=== PATIENT | female | born 1960 | race Caucasian/White ===

== ENCOUNTER → 2017-03-14 | Outpatient (CLI) | payer OTHER | LOC: CIMAGING 09:39 | DX: Z12.31 Encounter for screening mammogram for malignant neoplasm of breast (principal); Z80.3 Family history of malignant neoplasm of breast | CPT/HCPCS: G0202 ==

== ENCOUNTER → 2018-06-11 | Outpatient (CLI) | payer BC, OTHER | LOC: CIMAGING 14:38 | PROVIDERS: ATTEND Family Medicine | DX: Z12.31 Encounter for screening mammogram for malignant neoplasm of breast (principal) ==

== ENCOUNTER 2018-09-13 08:51 | Inpatient (IN) | payer SELFPAY ==
--- NOTE | 2018-09-13 07:21 | PDHPUP ---
History & Physical Update H&P update statement: This history and physical update is based on an assessment of the patient which was completed after admission or registration (within 24 hours), but prior to the surgery/procedure. H&P update: H&P reviewed & patient examined, no change in patient's condition since H&P completed
[~2018-09-13 08:51] MED LIST: ROPIVACAINE 0.2% 80 MG, EPINEPHrine 0.2 MG, KETOROLAC TROMETHAMINE 30 MG in SYRINGE 0 ML IU ONE; TRANEXAMIC ACID 3,000 MG in NS (SYRINGE) 50 ML IRR ONE; TRANEXAMIC ACID 3,000 MG/50 ML BAG IRR ONE
[2018-09-13] MEDS ORDERED: ceFAZolin 2 GM/DEXTROSE 100 ML IV ONE (09:22)
[2018-09-13] MEDS ORDERED: DEXAMETHASONE 4 MG/ML VIAL IVP ONE (09:22)
[2018-09-13] MEDS ORDERED: ACETAMINOPHEN 325 MG TAB PO ONE (09:22)
[2018-09-13] MEDS ORDERED: FAMOTIDINE 20 MG TAB PO ONE (09:22)
[2018-09-13] MEDS ORDERED: LR 1,000 ML IV ONE (09:23)
[2018-09-13] MEDS ORDERED: LIDOCAINE 1% 2 ML INJ ID PRN (09:23)
[2018-09-13] MEDS ORDERED: PHENYLEPHRINE HCL 100 MCG/ML SYR IVP PRN (09:38)
[2018-09-13] MEDS ORDERED: PROMETHAZINE HCL 25 MG/ML INJ IVP PRN ×2 (09:38→12:36)
[2018-09-13] MEDS ORDERED: oxyCODONE IR 5 MG TAB PO PRN (09:38)
[2018-09-13] MEDS ORDERED: MIDAZOLAM 2 MG/2 ML VIAL IVP ONE (09:38)
[2018-09-13] MEDS ORDERED: LR 500 ML IV PRN (09:38)
[2018-09-13] MEDS ORDERED: NALOXONE HCL 0.4 MG/ML INJ IVP PRN (09:38)
[2018-09-13] MEDS ORDERED: ONDANSETRON 4 MG/2 ML VIAL IVP PRN ×2 (09:38→12:36)
[2018-09-13] MEDS ORDERED: LIDOCAINE 2% 5 ML SDV ONE (09:41)
[2018-09-13] MEDS ORDERED: PROPOFOL/EMULSION 500 MG/50 ML BOTTLE IV ONE ×2 (09:41→11:44)
[2018-09-13] MEDS ORDERED: ONDANSETRON 4 MG/2 ML VIAL ONE (09:41)
[2018-09-13] MEDS ORDERED: PROPOFOL 200 MG/20 ML VIAL ONE (09:41)
--- NOTE | 2018-09-13 10:45 | PDANEPAE ---
ANE Past Medical History - Cardiovascular History Hx Hypertension: Yes Hx Arrhythmias: No Hx Chest Pain: No Hx Coronary Artery / Peripheral Vascular Disease: No Hx CHF / Valvular Disease: No Hx Palpitations: No Cardiovascular History Comment: dialtion of aorta. right BBB. worked up by [facility] - Pulmonary History Hx COPD: No Hx Asthma/Reactive Airway Disease: No Hx Recent Upper Respiratory Infection: No Hx Oxygen in Use at Home: No Hx Sleep Apnea: No Sleep Apnea Screening Result - Last Documented: Negative - Neurologic History Hx Cerebrovascular Accident: No Hx Seizures: No Hx Dementia: No - Endocrine History Hx Diabetes: No - Renal History Hx Renal Disorders: No - Liver History Hx Hepatic Disorders: No - Neurological & Psychiatric Hx Hx Neurological and Psychiatric Disorders: No - Cancer History Hx Cancer: No - Congenital Disorder History Hx Congenital Disorders: No - GI History Hx Gastrointestinal Disorders: No - Other Health History Other Health History: glasses - Chronic Pain History Chronic Pain: Yes (left hip) - Surgical History Prior Surgeries: inguinal hernia repair x2. breast implants ANE Review of Systems Review of Systems: - Exercise capacity METS (RN): 4 METS ANE Patient History - Allergies Allergies/Adverse Reactions: morphine Allergy (Verified 09/12/18 10:10) Vomiting - Home Medications Home Medications: Losartan Potassium [Cozaar 50 mg (*)] 50 mg PO DAILY 09/05/18 [Last Taken ] Metoprolol Succinate 50 mg PO DAILY 09/05/18 [Last Taken 09/13/18 07:30] - NPO status NPO Since - Liquids (Date): 09/13/18 NPO Since - Liquids (Time): 08:00 NPO Since - Solids (Date): 09/12/18 NPO Since - Solids (Time): 20:00 - Smoking Hx Smoking Status: Former smoker - Family Anes Hx Family Hx Anesthesia Complications: none ANE Labs/Vital Signs - Vital Signs Blood Pressure: 130/81 Heart Rate: 57 Respiratory Rate: 19 O2 Sat (%): 96 Height: 162.56 cm Weight: 67.585 kg ANE Physical Exam - Airway Neck exam: FROM Mallampati Score: Class 2 Mouth exam: normal dental/mouth exam - Pulmonary Pulmonary: no respiratory distress, no rales or rhonchi, clear to auscultation - Cardiovascular Cardiovascular: regular rate and rhythym, no murmur, rub, or gallop - ASA Status ASA Status: II ANE Anesthesia Plan Anesthesia Plan: spinal
[2018-09-13] MEDS ORDERED: BUPIVACAINE/DEXTROSE 7.5MG/ML 2 ML SPINAL AMP SP ONE (10:48)
[2018-09-13] MEDS ORDERED: ePHEDrine SULFATE 25 MG/5 ML SYR ONE (11:32)
[2018-09-13] MEDS ORDERED: BISACODYL 10 MG SUPP PR PRN (12:36)
[2018-09-13] MEDS ORDERED: METOCLOPRAMIDE 10 MG/2 ML VIAL IVP PRN (12:36)
[2018-09-13] MEDS ORDERED: TEMAZEPAM 15 MG CAP PO PRN (12:36)
[2018-09-13] MEDS ORDERED: POLYETHYLENE GLYCOL 3350 17 GM PKT PO PRN (12:36)
[2018-09-13] MEDS ORDERED: diphenhydrAMINE 25 MG CAP PO PRN (12:36)
[2018-09-13] MEDS ORDERED: PROMETHAZINE HCL 25 MG SUPPR PR PRN (12:36)
[2018-09-13] MEDS ORDERED: DIPHENOXYLATE/ATROPINE LOMOTIL 1 TAB PO PRN (12:36)
[2018-09-13] MEDS ORDERED: MAGNESIUM HYDROXIDE 30 ML UDCUP PO PRN (12:36)
[2018-09-13] MEDS ORDERED: LACTULOSE 20 GM/30 ML UDCUP PO PRN (12:36)
--- NOTE | 2018-09-13 12:36 | POSTOPPROG ---
Post Op Note Date of Operation: 09/13/18 Surgeon: Tejinder Jung Mushroom Cutter: Ally Jung PA-C Anesthesiologist: Dr. Garcia Anesthesia: Spinal, Other (Specify) (adductor canal block) Pre-op Diagnosis: left hip OA Post-op Diagnosis: same Indication: left hip pain Procedure: left ZANE Findings: severe left hip OA Inf/Abcess present in the surg proc area at time of surgery?: No EBL: 50-100
--- NOTE | 2018-09-13 12:44 | PDMN ---
Medical Necessity [place] [facility] [place] OP: L ZANE
[2018-09-13] MEDS ORDERED: LR 1,000 ML IV SCH (13:00)
[2018-09-13] MEDS ORDERED: fentaNYL 100 MCG/2 ML INJ ONE ×2 (13:11→14:17)
[2018-09-13] MEDS: fentaNYL 100 MCG/2 ML INJ IVP PRN ×4 (13:13→14:42)
[2018-09-13] MEDS ORDERED: HYDROmorphONE/DILAUDID 2 MG/ML INJ ONE (13:29)
[2018-09-13] MEDS ORDERED: oxyCODONE IR 5 MG TAB ONE (13:30)
[2018-09-13] MEDS: HYDROmorphONE/DILAUDID 2 MG/ML INJ IVP PRN ×5 (13:32→14:42)
[2018-09-13] MEDS: GENTAMICIN 0.3% 3.5 GM OPHT.OINT LEFTEYE SCH ×2 (13:44→22:41)
[2018-09-13] MEDS: oxyCODONE IR 5 MG TAB PO PRN ×2 (15:39→18:30)
[2018-09-13] MEDS: ceFAZolin 2 GM/DEXTROSE 100 ML IV SCH ×2 (15:39→22:42)
[2018-09-13] MEDS: CYCLOBENZAPRINE 10 MG TAB PO PRN (15:40)
--- NOTE | 2018-09-13 16:40 | POSTANESTH ---
Post Anesthetic Evaluation Cardiovascular Status: Normal, Stable Respiratory Status: Normal, Stable Level of Consciousness/Mental Status: Can Participate in Eval Pain Control: Adequate, Prn Tx Ordered Nausea/Vomiting Control: Adequate, Prn Tx Ordered Complications Possibly Related to Anesthesia: None Noted
[2018-09-13] MEDS: ONDANSETRON DISINTEGRATING 4 MG TAB PO PRN (17:31)
[2018-09-13] MEDS: ACETAMINOPHEN 325 MG TAB PO SCH (18:25)
[2018-09-13] MEDS: ASPIRIN 81 MG CHEWABLE TAB PO SCH (20:45)
[2018-09-13] MEDS: SENNOSIDES/DOCUSATE SODIUM TAB PO SCH (20:45)
[2018-09-13] MEDS: FAMOTIDINE 20 MG TAB PO SCH (20:45)
[2018-09-13] MEDS ORDERED: HYDROmorphONE/DILAUDID 2 MG/ML INJ IVP PRN (21:42)
[2018-09-14] MEDS: ACETAMINOPHEN 325 MG TAB PO SCH ×4 (01:34→16:33)
[2018-09-14] MEDS: oxyCODONE IR 5 MG TAB PO PRN ×2 (05:27→14:32)
[2018-09-14] MEDS: CYCLOBENZAPRINE 10 MG TAB PO PRN ×2 (05:28→16:33)
--- NOTE | 2018-09-14 05:52 | GOP ---
DATE OF OPERATION: 09/13/2018 SURGEON: Mart Jung MD DIRECTOR PROJECT MANAGEMENT: Ally Jung, MEI. ANESTHESIA: Spinal. PREOPERATIVE DIAGNOSIS: Left hip osteoarthritis. POSTOPERATIVE DIAGNOSIS: Left hip osteoarthritis. PROCEDURE PERFORMED: Total hip arthroplasty with x-ray. FINDINGS: ESTIMATED BLOOD LOSS: 200 cc. INDICATIONS: The patient has progressively worsening arthritis of the hip which has failed medical m anagement. The patient understands the treatment options including continued non-operative care and has selected surgical intervention. The patient has decided to undergo total hip arthroplasty via th e direct anterior approach, understanding the risks of the procedure including, but not limited to, n eurovascular injury, infection, persistent pain, component wear and loosening, deep venous thrombosis , pulmonary embolism, limb length inequality, hip instability (including dislocation), and intra-oper ative fractures. DESCRIPTION OF PROCEDURE: After proper identification of the patient including verification and ivania ing the surgical site, the patient was brought to the operating room and placed in the supine positio n. All bony prominences were well padded. Anesthesia was induced without complication and intraveno us prophylactic antibiotics were administered prior to skin incision. The operative leg was placed in the Trumpf Arch table extension and the well leg in a Yellofin leg ho lder. The patient was prepped and draped in the usual sterile fashion. The C-arm was draped for int ra-operative fluoroscopy to check acetabular position, femoral component position including leg lengt h and femoral offset. Attention was then drawn to surgical exposure of the hip. An incision was made with a #10 Bard Kaufman r blade starting 3 cm lateral and 3 cm distal to the anterior superior iliac spine measuring 8-10 cm and coursing distally toward the greater trochanter. The skin and subcutaneous tissues were divided sharply down to the fascia maria l. The fascia maria l was incised in line with the skin incision exposing the underlying tensor fascia maria l muscle. The muscle was bluntly elevated from the fascia and the f irst extracapsular Cobra retractor was placed laterally at the junction of the superior femoral neck and greater trochanter. The lateral femoral circumflex vessels were identified, cauterized, and divi ded with the Aquamantys bipolar cautery. The deep investing fascia of the TFL was divided to allow p shane mobilization of the muscle preventing damage during the retraction. The reflected head of the rectus femoris muscle was elevated off the anterior hip capsule and a medial Cobra retractor was plac ed just proximal to the lesser trochanter. The anterior capsulotomy was made sharply from the superolateral acetabulum to the saddle junction of the superior femoral neck and greater trochanter, then coursing inferomedial towards the lesser troc hanter. The retractors were then placed in the intracapsular position for femoral neck osteotomy. C orresponding to pre-operative templating, the osteotomy was made with the oscillating saw carefully p rotecting the greater trochanter and soft tissues. The femoral head was removed from the acetabulum with a corkscrew and confirmed to be severely arthritic with exposed bone, deformity and osteophytes. Similar findings were confirmed in the acetabulum. The Arch table extension was then placed in 40 degrees external rotation. Attention was then drawn to the acetabular preparation. After placement of the anterior and posterio r Cobra retractors outside the labrum and intracapsular, the circumferential labrum was removed sharp ly. The foveal contents were then removed and hemostasis obtained with cautery. The first reamer selected was sized using the removed femoral head. Reaming began with medialization and then commenced in 2 mm increments at 45 degrees of abduction and 15 degrees of anteversion using fluoroscopic navigation. Reaming ceased 1 mm less than the definitive acetabular component and latonya esponded to the pre-operative templating. The final acetabular component was inserted using fluorosc opy to achieve proper orientation yielding excellent purchase and stability in the acetabulum. The f inal acetabular liner was then placed and its seating confirmed. Attention was then turned to the femur. The Arch table extension was placed in extension and adducti on, delivering the osteotomized femoral neck into the wound. A 2-pronged femoral elevator was placed at the calcar and another at the tip of the greater trochanter. The posterolateral capsule was rele ased with cautery allowing mobilization of the femur lateral and anterior for preparation. The exter nal rotators were visualized and preserved. A curette and rongeur were used to open the starting poi nt for broaching. Serial broaching started with the #0 broach and ended with the broach that exhibit ed excellent fit in the proximal femur. A change in pitch during mallet strikes was accompanied by t he inability to advance the broach any further. The trial reduction was performed and fluoroscopic n avigation was utilized to check limb length. Adjustments were made to equalize limb length according ly. After the final trials were accepted they were removed and the wound was copiously lavaged. The femo ral component was seated to the same depth as the final broach and the femoral head was impacted onto the clean trunnion. The hip was then reduced for the final time and once more fluoroscopy was used to check that limb length equality was achieved. The wound was irrigated and closed in layers, the fascia maria l with 2-0 Quill, the subcutaneous tissue with 2-0 Quill, and the skin with Dermabond. Sterile dressings were applied. Final sharps and spon ge counts were accurate. The patient was then transferred to a hospital bed and brought to the [facility] room in stable condition. IMPLANTS: Accolade II size 3 and 127 acetabular component, a Trident II 54 mm, liner is a Trident X3 36 mm, head is a Biolox Delta 36 mm +5. /[id number]/MODL
[2018-09-14] MEDS: FAMOTIDINE 20 MG TAB PO SCH ×2 (08:12→21:02)
[2018-09-14] MEDS: SENNOSIDES/DOCUSATE SODIUM TAB PO SCH ×2 (08:12→21:00)
[2018-09-14] MEDS: ASPIRIN 81 MG CHEWABLE TAB PO SCH ×2 (08:12→21:02)
[2018-09-14] MEDS: GENTAMICIN 0.3% 3.5 GM OPHT.OINT LEFTEYE SCH ×2 (08:20→16:44)
[2018-09-14] MEDS: METOPROLOL SUCCINATE XR 50 MG TAB PO SCH (08:41)
[2018-09-14] MEDS: LOSARTAN POTASSIUM 50 MG TAB PO SCH (08:41)
[2018-09-14] MEDS ORDERED: NS 500 ML IV ONE (10:00)
--- NOTE | 2018-09-14 10:58 | SOAPPROG ---
SOAP Progress Note Assessment/Plan: Assessment: Patient is doing well POD 1 s/p L ZANE Pain management: patient had pain issues yesterday, and the information systems professor PA for [employer], Rickey Infante, ordered 2mg IV dilaudid Q3-4 H PRN. Patient received one dose of this IV dilaudid at 2mg and nurse noted decreased O2 sats in the 80s. Monitored patient closely and told patient she did not feel comfortable continuing IV dilaudid. Nurse did a great job recognizing that this was unsafe for the patient. Patient is currently taking oral oxycodone IR. recommend patient remain inpatient for pain management and close monitoring of vitals. patient's BP has remained borderline hypotensive. VTE ppx: recommend aspirin 81 mg BID for 4 weeks, cont LISA and SCDs Anemia: level is expected initially postop. Asymptomatic. Continue to monitor D/c planning: recommend another night in the hospital for close monitoring of BP ,and pain management. continue PT while inpatient at the hospital. Hypotension: encourage monitoring closely, if BP do not improve today, recommend holding losartan and beta mario. postop urinary retention: straight cath'd yesterday, resolved today. continue to monitor closely. Plan: 09/14/18 10:54 09/14/18 10:59 09/14/18 11:01 Subjective: Patient is doing ok this morning, received large dose of IV dilaudid last night and had subsequent drop in O2 sat's and decrease in BPs per nurses note. Nurse stopped further doses of IV dilaudid. patient has had pain issues, denies SOB, chest pain and N/V Objective: Vital Signs Temp Pulse Resp BP Pulse Ox 36.7 C 65 12 94/59 L 97 09/14/18 07:49 09/14/18 08:41 09/14/18 07:49 09/14/18 09:56 09/14/18 07:49 Laboratory Results 09/14/18 05:15 09/13/18 09/14/18 09/15/18 05:59 05:59 05:59 Intake Total 1795 350 Output Total 1200 400 Balance 595 -50 LLE: incision dressing is clean and dry, NVI, +pf/df ICD10 Worksheet Patient Problems: Problems Problem Status Onset Primary localized osteoarthritis of left hip Acute
[2018-09-14] MEDS ORDERED: NS BOLUS 500 ML (Wide open) IV ONE (17:00)
[2018-09-15] MEDS: GENTAMICIN 0.3% 3.5 GM OPHT.OINT LEFTEYE SCH ×2 (00:04→08:37)
[2018-09-15] MEDS: ACETAMINOPHEN 325 MG TAB PO SCH ×2 (00:19→05:19)
[2018-09-15] MEDS: ONDANSETRON DISINTEGRATING 4 MG TAB PO PRN (06:38)
[2018-09-15] MEDS: oxyCODONE IR 5 MG TAB PO PRN (06:38)
[2018-09-15 07:56] VITALS: BP 102/64
[2018-09-15] MEDS: ASPIRIN 81 MG CHEWABLE TAB PO SCH (07:56)
[2018-09-15] MEDS: SENNOSIDES/DOCUSATE SODIUM TAB PO SCH (07:57)
[2018-09-15] MEDS: FAMOTIDINE 20 MG TAB PO SCH (07:57)
[2018-09-15] MEDS: LOSARTAN POTASSIUM 50 MG TAB PO SCH (08:37)
[2018-09-15] MEDS: METOPROLOL SUCCINATE XR 50 MG TAB PO SCH (08:37)
--- NOTE | 2018-09-15 10:21 | SOAPPROG ---
SOAP Progress Note Assessment/Plan: Assessment: Patient is doing well POD 2 s/p L ZANE Pain management: pain has improved. controlled on oral pain meds VTE ppx: recommend aspirin 81 mg BID for 4 weeks, cont LISA and SCDs Anemia: level is expected initially postop. Asymptomatic. Continue to monitor Hypotension: improved postop urinary retention: straight cath'd POD 0, resolved POD 1. D/c planning: ok to discharge to home today Plan: 09/14/18 10:54 09/14/18 10:59 09/14/18 11:01 09/15/18 10:19 Subjective: patient is doing well, pain control has improved and patient is awake and alert. Objective: Vital Signs Temp Pulse Resp BP Pulse Ox 37.2 C 71 16 102/64 95 09/15/18 07:55 09/15/18 08:37 09/15/18 07:55 09/15/18 08:37 09/15/18 07:55 Laboratory Results 09/15/18 04:30 09/14/18 09/15/18 09/16/18 05:59 05:59 05:59 Intake Total 1795 1350 Output Total 1200 2050 Balance 595 -700 LLE: incision dressing is clean and dry, NVI, +pf/df ICD10 Worksheet Patient Problems: Problems Problem Status Onset Primary localized osteoarthritis of left hip Acute
== END 2018-09-15 11:17 | disposition home or self-care (01) | DRG 470 ==
LOC: F3N 08:51
PROVIDERS: ADMIT Orthopaedic Surgery; ATTEND Orthopaedic Surgery
PROC: 0SRB04Z Replacement of Left Hip Joint with Ceramic on Polyethylene Synthetic Substitute, Open Approach (ICD-10-PCS; principal; 2018-09-13 11:00)
DX: M16.12 Unilateral primary osteoarthritis, left hip (principal); I95.9 Hypotension, unspecified; D64.9 Anemia, unspecified; R33.9 Retention of urine, unspecified; Z87.891 Personal history of nicotine dependence
CPT/HCPCS: 97110-GP; 97116-GP; 97161-GP; J0171; J0690; J1100; J1170; J1885; J2250; J2405; J2704; J2795; J3010